=== PATIENT | female | born 1940 | race Caucasian/White ===

== ENCOUNTER 2024-12-24 09:52 | Emergency (ER) | payer SELFPAY ==
[2024-12-24 10:03] VITALS: BP 135/70
[2024-12-24 10:24] LABS: Glucose - Point of Care 110 mg/dl (70-99)
--- NOTE | 2024-12-24 10:31 | EDRN ---
[facility] in room w/ pt.
--- NOTE | 2024-12-24 10:38 | ED.GENMED ---
History of Present Illness
General
Chief Complaint: Fainting Sensation
Source: patient
Exam Limitations: none
Time Seen by Provider: 12/24/24 10:28
History of Present Illness
History of Present Illness:
84-year-old female presents via EMS from [facility] after nearly passing out this morning. 5 days ago, she had a left knee replacement. She has been in some pain to her left knee. She denies chest pain or shortness of breath. She is on an
aspirin daily. She woke up this morning stood up and walked to the bathroom started feel lightheaded and route to the bathroom and sat on the toilet. She urinated and felt more lightheaded and got sweaty. She placed her head between her knees and
pulled the string for help. She states she did not fully pass out. No current chest pain or shortness of breath. She just feels tired at this time as well as she feels hungry. No other complaints otherwise
Phy Exam
Physical Exam
Physical Exam:
General: Well-appearing female no acute respiratory distress
HEENT: Normocephalic atraumatic
Heart: Regular rate and rhythm
Lungs: Clear no wheeze
Abdomen is soft nontender nondistended no guarding rebound
Extremities: No cyanosis
Skin is warm no rash
Course
Orders/Labs/Results
Orders:
Orders
12/24/24 10:07
Electrocardiogram (*1) Urgent
Reason for Study: Vertigo / Dizzy
EKG- Treatment ONCE
12/24/24 10:38
0.9% Sodium Chloride 1000 ml [Nss] 1,000 ml IV BOLUS
12/24/24 10:51
Complete Blood Count/With Diff Urgent
Comprehensive Metabolic Panel Urgent
Abnormal Lab Results
12/24/24 12/24/24
10:21 10:51
RBC 3.78 L 10^6/uL
(4.20-5.40)
Hct 35.0 L %
(37.0-47.0)
MCH 32.3 H pg
(27.0-31.0)
Abs Immat Gran (auto) 0.1 H 10^3/uL
(0-0.05)
Absolute Monos (auto) 0.7 H 10^3/uL
(0.1-0.6)
Immature Gran % 0.9 H %
(0-0.5)
Lymphocytes % 14.3 L %
(20.5-51.1)
Sodium 134 L mmol/L
(135-145)
Chloride 94 L mmol/L
(98-107)
Carbon Dioxide 32 H mmol/L
(22-30)
BUN 20 H mg/dl
(7-17)
Glucose 118 H mg/dl
(70-99)
POC Glucose 110 H mg/dl
(70-99)
12/24/24 10:51
12/24/24 10:51
Vital Signs
Initial and Last Documented VS:
Initial Vital Signs
Temp Pulse Resp BP Pulse Ox
97.6 F 60 16 135/70 97
12/24/24 10:03 12/24/24 10:03 12/24/24 10:03 12/24/24 10:03 12/24/24 10:03
Last Documented Vital Signs
Temp Pulse Resp BP Pulse Ox
97.6 F 70 15 132/69 95
12/24/24 10:03 12/24/24 13:30 12/24/24 13:30 12/24/24 13:00 12/24/24 13:30
MDM/Problems Addressed
Differential Diagnosis Includes:
Near syncope. Question anemia versus electrolyte abnormality versus vasovagal event versus dehydration versus arrhythmia.
EKG shows sinus rhythm. Will keep on monitor labs pending fluids ordered
*Critical Care Note
Total Time (30-74mins, 75-104mins- exclusive of procedures): Not Applicable
Update Note
Update Note:
Patient given fluids had a meal blood work drawn feels well. She ambulated to the bathroom no further lightheadedness or presyncopal episodes. No arrhythmias on monitor. Suspect episode today with combination of orthostasis versus vasovagal
versus pain response. Stable for discharge
ED Attending Note
-
Portions of this chart may have been created with voice recognition software.� Occasional wrong word or��sound alike� substitutions may have occurred due to the inherent limitations of voice recognition software.
Discharge Plan
Departure
Patient Disposition: Home (Routine Discharge)
Date of Disposition: 12/24/24
Time of Disposition: 14:04
Patient with high blood pressure during this ER visit?: No
Discharge Problem:
Near syncope
Referrals:
Gisselle Alcantara MD [Family Provider] -
Activity Restrictions/Additional Instructions:
Stay hydrated. Continue current medication regimen. Return if worse otherwise follow-up with your doctors
Interventions
Interventions:
*Risk Screen - Suicide Last Done: 12/24/24 10:50
*General Assessment Last Done: 12/24/24 10:50
*Neglect/Abuse Screening Last Done: 12/24/24 10:50
*ED- Fall Risk Assessment Last Done: 12/24/24 10:50
*ED COVID-19 Vaccine History Last Done: 12/24/24 10:50
ED- Neurological Assessment Last Done: 12/24/24 10:50
ED- Cardiac Assessment Last Done: 12/24/24 10:50
Discharge Date and Time
Print Language: MAORI
[2024-12-24 10:41] VITALS: BP 128/68
[2024-12-24 10:50] VITALS: BMI 25.4
[2024-12-24] MEDS: NSS 1000 IV (10:58)
[2024-12-24 11:00] VITALS: BP 136/83
[2024-12-24 11:16] LABS: ALT (SGPT) 25 U/L (0-35); AST (SGOT) 30 U/L (14-36); Albumin 3.8 g/dl (3.5-5.0); Alkaline Phosphatase 56 U/L (38-126); Blood Urea Nitrogen 20 mg/dl (7-17); Carbon Dioxide 32 mmol/L (22-30); Chloride 94 mmol/L (98-107); Glucose 118 mg/dl (70-99); Potassium 3.9 mmol/L (3.5-5.1); Sodium 134 mmol/L (135-145); Total Bilirubin 0.8 mg/dl (0.2-1.3); Total Protein 6.5 g/dl (6.3-8.2); eGFR > 60.00
--- NOTE | 2024-12-24 11:23 | EDRN ---
Pt states she arrives for a near fainting episode. Pt had her L TKR this past Wednesday and has been having a lot of pain (R TKR was in Apr). Pt states she got up to void in BR and became very dizzy, feeling paint w/ sweating. Pt attempted to place
her head between her knees though it did not get better. Pt had a similar episoce after her R TKR. 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
--- NOTE | 2024-12-24 11:25 | EDRN ---
Pt states she is still feeling slightly dizzy.
[2024-12-24 12:00] VITALS: BP 144/100
--- NOTE | 2024-12-24 12:20 | EDRN ---
Pt OOB to BR w/ liset at this time. Pt had a couple of bites of turkey sandwich and drank the second apple juice.
[2024-12-24 12:23] LABS: % Basophils 0.5 % (0-2); % Eosinophils 2.9 % (0-6); % Immature Granulocytes 0.9 % (0-0.5); % Lymphocytes 14.3 % (20.5-51.1); % Monocytes 7.8 % (1.7-9.3); % Neutrophils 73.6 % (42.2-75.2); Absolute Eosinophils 0.3 10^3/uL (0-0.7); Absolute Immature Granulocytes 0.1 10^3/uL (0-0.05); Absolute Lymphocytes 1.3 10^3/uL (1.2-3.4); Absolute Monocytes 0.7 10^3/uL (0.1-0.6); Absolute Neutrophils 6.5 10^3/uL (1.4-6.5); Hemoglobin 12.2 g/dL (12.0-16.0); Mean Corp Hgb Conc. 34.9 g/dL (33.0-37.0); Mean Corpuscular Hgb 32.3 pg (27.0-31.0); Mean Corpuscular Volume 92.6 fL (81.0-99.0); Mean Platelet Volume 9.6 fL (7.4-10.4); Nucleated Red Blood Cells % 0 %; Platelet Count 306 10^3/uL (130-400); Red Blood Cell Count 3.78 10^6/uL (4.20-5.40); Red Cell Dist. Width 12.7 % (11.5-14.5); White Blood Cell Count 8.9 10^3/uL (4.8-10.8)
--- NOTE | 2024-12-24 12:41 | EDRN ---
Pt returned to stretcher after small BM in BR. Pt has no dizziness since awakening. Pt had no dizziness while ambulating to and from BR nor in BR. [facility] informed. Still awaiting CBC results at this time. Lab was called at 12:00 and said
CBC still in process.
--- NOTE | 2024-12-24 12:44 | EDRN ---
CBC resulted just now.
[2024-12-24 13:00] VITALS: BP 132/69
--- NOTE | 2024-12-24 13:52 | EDRN ---
Pt was asked about getting back to [facility] and she said that she would like us to call for their transport to pick her up. [facility] ED PCT who is margin clerk today is checking into this possibility at this time. Boubac[facility] in room w/ pt and will be
discharging pt.
[2024-12-24 14:00] VITALS: BP 134/75
== END 2024-12-24 15:58 | disposition home or self-care (01) ==
LOC: EMR 09:52
PROVIDERS: Emergency Medicine; EMERGENCY PHYSICIAN Emergency Medicine; FAMILY PHYSICIAN Family Medicine
DX: R55 Syncope and collapse (principal); R61 Generalized hyperhidrosis; M25.562 Pain in left knee; R53.83 Other fatigue; Z96.652 Presence of left artificial knee joint; Z98.890 Other specified postprocedural states; Z79.82 Long term (current) use of aspirin
CPT/HCPCS: 99284; 96360; 80053; 82962; 85025; 93005